=== PATIENT | female | born 1955 | race Caucasian/White ===

== ENCOUNTER → 2016-07-30 | Outpatient (CLI) | payer SELFPAY ==
[2016-07-04 11:09] VITALS: BP 144/91
[2016-07-30 11:29] LABS: BLOOD UREA NITROGEN 6 mg/dL (7-18); CALCIUM 9.2 mg/dL (8.5-10.1); CARBON DIOXIDE 30.7 mmol/L (21-32); CHLORIDE 103 mmol/L (98-107); CREATININE 0.95 mg/dL (0.55-1.02); GLUCOSE 105 mg/dL (65-99); SODIUM 140 mmol/L (136-145); eGFR BLACK RACES > 60 (>60); eGFR NON BLACK RACES > 60 (>60)
== END ==
LOC: LAB 10:56
PROVIDERS: ATTEND Family Medicine
DX: E87.1 Hypo-osmolality and hyponatremia (principal)
CPT/HCPCS: 36415; 80048

== ENCOUNTER → 2017-02-26 | Outpatient (CLI) | payer SELFPAY ==
[2016-07-04 11:09] VITALS: BP 144/91
[2017-02-26 09:41] LABS: ALANINE AMINOTRANSFERASE 16 Units/L (12-78); ALBUMIN 3.4 g/dL (3.4-5.0); ALKALINE PHOSPHATASE 85 Units/L (46-116); ASPARTATE AMINO TRANSFERASE 14 Units/L (15-37); BILIRUBIN,DIRECT 0.06 mg/dL (0-0.2); BLOOD UREA NITROGEN 7 mg/dL (7-18); CALCIUM 9.5 mg/dL (8.5-10.1); CARBON DIOXIDE 33.7 mmol/L (21-32); CHLORIDE 102 mmol/L (98-107); CHOL/HDL RATIO 2.2 (0.0-5.0); CHOLESTEROL 143 mg/dL (0-200); CREATININE 1.08 mg/dL (0.55-1.02); HDL CHOLESTEROL 64 mg/dL (40-60); PHOSPHORUS 3.7 mg/dL (2.6-4.7); SODIUM 137 mmol/L (136-145); TOTAL PROTEIN 7.1 g/dL (6.4-8.2); TRIGLYCERIDES 80 mg/dL (0-150); URIC ACID 4.7 mg/dL (2.6-6.0); eGFR BLACK RACES > 60 (>60); eGFR NON BLACK RACES 54 (>60)
== END | disposition home or self-care (01) ==
LOC: LAB 08:57
PROVIDERS: ATTEND Family Medicine
DX: E78.4 Other hyperlipidemia (principal); I10 Essential (primary) hypertension
CPT/HCPCS: 36415; 80048; 80061; 80076; 84100; 84550

== ENCOUNTER 2017-09-01 19:15 | Emergency (ER) | payer SELFPAY ==
[2017-09-01 19:21] VITALS: BP 183/105; BMI 44.6
--- NOTE | 2017-09-01 20:00 | DR.GENAD ---
HPI - PCP Primary Care Physician: NANCY - Complaint/Symptoms Chief Complaint Doctors Comments: Patient presents with complaint of sleep apnea. Earlier in the week she got short of breath and used her spouses ProAir and got better. She reports that she has lung fibrosis and and has sleep apnea. Chief Complaint:: SHORT OF BREATH ALL DAY. COULDN'T GET AIR IN. USED INHALER AND IT HELP SOME. - Source History Provided: Patient - Mode of Arrival Mode of Arrival: Ambulatory - Timing Onset of Chief Complaint: 09/01/17 PMH - PMH Past Medical History: Yes Past Medical History: Anemia, Dyslipidemia, GERD, Hypertension Past Surgical History: Yes Surgical History: Cholecystectomy, Ortho Surgery - Family History History of Family Medical Conditions: Yes Family Medical History: Diabetes Mellitus, Heart Failure, Hypertension - Social History Does any household member use tobacco: Yes Alcohol Use: None Do you use any recreational Drugs:: No Lives With: Spouse Lives Where: Home - infectious screening In the last 2 months have you had wt loss of >10#?: NO Have you had fever, night sweats or hemotysis?: No Have you traveled outside the country in the last 6 months?: No Isolation: Standard ROS - Review of Systems Eyes: No Symptoms Reported ENTM: No Symptoms Reported Respiratoy: No Symptoms Reported Cardiovascular: No Symptoms Reported Gastrointestinal/Abdominal: No Symptoms Reported Genitourinary: No Symptoms Reported Neurological: No Symptoms Reported Musculoskeletal: No Symptoms Reported Integumentary: No Symptoms Reported Hematologic/Lymphatic: No Symptoms Reported Endocrine: No Symptoms Reported Psychiatric: No Symptoms Reported All Other Systems: Reviewed and Negative PE - Vital Signs Vitals: Temperature 97.6 F Pulse Rate 94 Respiratory Rate 20 Blood Pressure 183/105 O2 Sat by Pulse Oximetry 99 - General General Appearance: Alert, In No Apparent Distress - Head Head Exam: Normal Inspection, Atraumatic - Eyes Eye exam: Normal Appearance, PERRL, EOMI - ENT ENT Exam: Normal Exam External Ear Exam: Normal External Inspection TM/Canal Exam: Bilateral Normal Nose Exam: Normal Nose Exam Mouth Exam: Normal Inspection Throat Exam: Normal Inspection - Neck Neck Exam: Normal Inspection - Chest Chest Inspection: Normal Inspection - Respiratory Respiratory Exam: Normal Lung Sounds Bilat Respiratory Exam: Bilateral Clear to Auscultation - Cardiovascular Cardiovascular Exam: Regular Rate, Normal Rhythm - Abdominal Exam Abdominal Exam: Normal Inspection, Normal Bowel Sounds Abdominal Tenderness: negative: RUQ, RLQ, LUQ, LLQ, Epigastrium, Suprapubic, Diffuse, Mild, Moderate, Severe, Other - Extremities Extremities Exam: Normal Inspection, Full ROM - Back Back Exam: Normal Inspection, Full ROM - Neurologic Neurological Exam: Alert, Oriented X3, CN II-XII Intact - Psychiatric Psychiatric Exam: Normal Affect - Skin Skin Exam: Warm, Dry, Intact Course - Reevaluation 1st: Improved ROR - XRAY XRAY Interpreted by: Radiologist (Chest: Cardiac silhouette enlargement is unchanged. The lungs are grossly clear without overt edema, focal infiltrates, or significant pleural effusion. Moderate to larte hiatal hernia of the stomach is similar to prior.) - Diagnosis Discharge Problem: Cardiomegaly, Hiatal hernia - Discharge Plan Condition: Stable - Follow ups/Referrals Follow ups/Referrals: MEENA MONTAGUE [Primary Care Provider] - 3 days - Instructions
--- NOTE | 2017-09-01 23:06 | RAD ---
Chest, PA and lateral Indication: Shortness of breath Comparison: 07/04/2016 Findings: Cardiac silhouette enlargement is unchanged. The lungs are grossly clear without overt ira a, focal infiltrates, or significant pleural effusion. Moderate to large hiatal hernia of the stomach is similar to prior. Impression: Cardiomegaly without acute chest process. Hiatal hernia. Reported By:
== END 2017-09-01 23:26 | disposition home or self-care (01) ==
LOC: ER 19:25
DX: I51.7 Cardiomegaly (principal); K44.9 Diaphragmatic hernia without obstruction or gangrene
CPT/HCPCS: 71046; 99282